=== PATIENT | male | born 1950 | race Caucasian/White ===

== ENCOUNTER 2021-05-26 10:18 | Emergency (ER) | payer OTHER ==
[2021-05-26] MEDS ORDERED: AUGMENTIN 875-1 EACH PO (12:15)
== END 2021-05-26 12:06 | disposition home or self-care (01) ==
LOC: ER1 10:18
DX: S60.943A Unspecified superficial injury of left middle finger, initial encounter (principal); Z23 Encounter for immunization; M06.9 Rheumatoid arthritis, unspecified; I10 Essential (primary) hypertension; W45.8XXA Other foreign body or object entering through skin, initial encounter
CPT/HCPCS: 73130; 90471; 90715; 99283

== ENCOUNTER → 2021-11-21 | Outpatient (CLI) | payer OTHER ==
[~2021-11-21] MED LIST: AUGMENTIN 875-1 EACH PO
== END ==
LOC: ECHO 10:19
DX: R00.1 Bradycardia, unspecified (principal); I10 Essential (primary) hypertension; R00.2 Palpitations; I51.7 Cardiomegaly
CPT/HCPCS: ECHO; 93306

== ENCOUNTER → 2021-12-20 | Outpatient (CLI) | payer OTHER | LOC: HEART 5 10:25 | DX: R00.1 Bradycardia, unspecified (principal) ==